=== PATIENT | male | born 1955 | race Caucasian/White ===

== ENCOUNTER 2024-02-16 10:45 | Inpatient (IN) | payer BC, MEDICARE ==
[2024-02-16 11:24] LABS: #Basophils 0.04 10x3/uL (0.0-0.2); %Basophils 0.4 % (0.0-1.0); %Eosinophils 3.2 % (0.0-10.0); %Lymphocytes 22.9 % (21.0-51.0); %Monocytes 6.9 % (0.0-10.0); %Neutrophils 66.3 % (42.0-75.0); Hemoglobin 13.5 g/dL (14.0-18.0); Mean Corpuscular HGB CONC 34.6 g/dL (32.0-36.0); Mean Corpuscular Hemoglobin 33.5 pg (27.0-31.0); Mean Corpuscular Volume 96.8 fL (78.0-98.0); Mean Platelet Volume 11.4 fL (7.4-10.4); Platelet Count 200 10x3/uL (130-400); RBC Distribution Width 12.9 % (11.5-14.5); Red Blood Cell (RBC) Count 4.03 mill/uL (4.70-6.10)
[2024-02-16 11:54] LABS: ALT (SGPT) 38 U/L (8-55); AST (SGOT) 42 U/L (5-34); Albumin 3.9 g/dL (3.4-4.8); Alkaline Phosphatase 70 U/L (40-110); Anion Gap 12 mmol/L (10-20); BUN (Urea Nitrogen) 18 mg/dL (8.4-25.7); Bilirubin, Total 0.8 mg/dL (0.2-1.2); Calc. Creatinine Clearance 0 mL/min (70-130); Calcium 9.4 mg/dL (7.8-10.44); Carbon Dioxide 24 mmol/L (23-31); Chloride 102 mmol/L (98-107); Estimated GFR 76; Globulin 2.8 g/dL (2.4-3.5); Glucose 109 mg/dL (80-115); Lipase 23 U/L (8-78); Potassium 4.3 mmol/L (3.5-5.1); Protein, Total 6.7 g/dL (5.8-8.1); Sodium 134 mmol/L (136-145)
[2024-02-16] MEDS ORDERED: Acetaminophen 325 MG TAB PO PRN (12:13)
[2024-02-16] MEDS ORDERED: Ondansetron ODT 4 MG TAB PO PRN (12:13)
[2024-02-16] MEDS ORDERED: Ondansetron PF 4 MG/2 ML Vial IVP PRN (12:13)
[2024-02-16] MEDS ORDERED: Acetaminophen 650 MG Suppository PR PRN (12:13)
[2024-02-16 12:27] LABS: Troponin I 11.536 ng/mL (< 0.028)
[2024-02-16] MEDS ORDERED: Aspirin Chewable 81 MG TAB ONE (12:53)
[2024-02-16 14:56] LABS: Critical Call Chem Troponin I TRENDING DOWN; Troponin I 9.312 ng/mL (< 0.028)
[2024-02-16 15:45] VITALS: BMI 25.7
[2024-02-16] MEDS: Carvedilol 3.125 MG TAB PO SCH (16:33)
[2024-02-16 19:25] LABS: Troponin I 9.206 ng/mL (< 0.028)
[2024-02-16] MEDS: Atorvastatin Calcium 40 MG TAB PO SCH (20:50)
[2024-02-16] MEDS ORDERED: Famotidine 20 MG TAB PO SCH (21:00)
[2024-02-17 04:25] LABS: #Basophils 0.06 10x3/uL (0.0-0.2); %Basophils 0.7 % (0.0-1.0); %Eosinophils 3.5 % (0.0-10.0); %Monocytes 7.6 % (0.0-10.0); %Neutrophils 63.8 % (42.0-75.0); Hemoglobin 12.7 g/dL (14.0-18.0); Mean Corpuscular HGB CONC 35.3 g/dL (32.0-36.0); Mean Corpuscular Hemoglobin 33.2 pg (27.0-31.0); Mean Platelet Volume 11.2 fL (7.4-10.4); Platelet Count 173 10x3/uL (130-400); RBC Distribution Width 12.9 % (11.5-14.5); Red Blood Cell (RBC) Count 3.83 mill/uL (4.70-6.10)
[2024-02-17 04:46] LABS: Anion Gap 13 mmol/L (10-20); BUN (Urea Nitrogen) 19 mg/dL (8.4-25.7); Calc. Creatinine Clearance 90 mL/min (70-130); Calcium 9.1 mg/dL (7.8-10.44); Carbon Dioxide 19 mmol/L (23-31); Chloride 105 mmol/L (98-107); Estimated GFR 87; Glucose 108 mg/dL (80-115); Potassium 4.1 mmol/L (3.5-5.1); Sodium 133 mmol/L (136-145)
[2024-02-17] MEDS ORDERED: Nitroglycerin 0.4 MG TAB (25 Tab Bottle) SL PRN (09:44)
[2024-02-17] MEDS: Ezetimibe 10 MG TAB PO SCH (10:24)
[2024-02-17] MEDS: Pantoprazole DR 40 MG TAB PO SCH (10:42)
[2024-02-17 16:07] VITALS: BP 132/76; TEMP 97.8
[2024-02-17] MEDS: Prasugrel 10 MG TAB PO SCH (16:54)
[2024-02-17] MEDS ORDERED: Carvedilol 3.125 MG TAB PO SCH (21:00)
[2024-02-17] MEDS ORDERED: Apixaban 5 MG TAB PO SCH (21:00)
[2024-02-17] MEDS ORDERED: Lisinopril 10 MG TAB PO SCH (21:00)
[2024-02-18] MEDS ORDERED: Aspirin 325 MG TAB PO SCH (09:00)
[2024-02-18] MEDS ORDERED: Prasugrel 10 MG TAB PO SCH (09:00)
[2024-02-18] MEDS ORDERED: Ezetimibe 10 MG TAB PO SCH (09:00)
[2024-02-18] MEDS ORDERED: Atorvastatin Calcium 40 MG TAB PO SCH (09:00)
[2024-02-18] MEDS ORDERED: Pantoprazole DR 40 MG TAB PO SCH (09:00)
== END 2024-02-17 20:45 | disposition home or self-care (01) | DRG 282 ==
LOC: ERS 10:45 → SUATTDRO 10:45 → ERHOLD 12:17 → 2SW 15:21
PROVIDERS: ADMIT Family Medicine; ATTEND Internal Medicine Critical Care Medicine
DX: I21.4 Non-ST elevation (NSTEMI) myocardial infarction (principal); I25.10 Atherosclerotic heart disease of native coronary artery without angina pectoris; Z79.01 Long term (current) use of anticoagulants; Z79.899 Other long term (current) drug therapy; I10 Essential (primary) hypertension; Z98.890 Other specified postprocedural states; K21.9 Gastro-esophageal reflux disease without esophagitis; E78.5 Hyperlipidemia, unspecified; I25.5 Ischemic cardiomyopathy
CPT/HCPCS: 36415; 36416; 70450; 71045; 80048; 80053; 83690; 83880; 84484; 85025; 93005; 93306